=== PATIENT | female | born 1995 | race Asian ===

== ENCOUNTER 2022-11-04 06:14 | Emergency (ER) | payer BC, OTHER ==
[~2022-11-04] VITALS: Ht 165 cm; Wt 81.0 kg
--- NOTE | 2022-11-04 06:43 | ED Abdominal Pain ---
General Stated Complaint: ABD PAIN,NAUSEA Source of Information: Patient Exam Limitations: No Limitations History of Present Illness Date Seen by Provider: November 04, 2022 Time Seen by Provider: 06:43 Initial Comments Patient is a 27-year-old female who presents to the emergency room with a chief complaint of abdominal pain, nausea and vomiting. She states it started at about 3:00 this morning. She describes it as "severe". Nothing makes it any better or any worse. It seems to be localized to the right side of her abdomen. She has not had any diarrhea. She has vomited multiple times, took an [id number] nonprescription "pain reliever" at 430 but vomited it up. She states she is allergic to ibuprofen it makes her mouth lips and whole body swell. She denies fever. No chills. No dysuria, urgency or frequency. No abnormal vaginal discharge. She states her last menstrual cycle was around 16 September. She is not on control. She is sexually active. She is attempting to get . She has had no prior pregnancies. She has had no prior abdominal surgeries. She has had a kidney stone in the past 6 to 7 years ago. She states this pain feels different. Still nauseous and dry heaving. Unable to provide a urine specimen at this time due to her reported dehydration. Timing/Duration: 4-6 Hours Severity/Quality: Severe, Aching Location: RLQ, Flank (right) Radiation: No Radiation Activities at Onset: Sleeping Associated Symptoms: Nausea/Vomiting Allergies and Home Medications Allergies Coded Allergies: ibuprofen (Verified Allergy, Severe, Angioedema, 11/04/22) Patient Home Medication List Home Medication List Reviewed: Yes Review of Systems Review of Systems Constitutional: see HPI EENTM: No Symptoms Reported Respiratory: No Symptoms Reported Cardiovascular: No Symptoms Reported Gastrointestinal: Abdominal Pain, Nausea, Vomiting Genitourinary: No Symptoms Reported Musculoskeletal: no symptoms reported Skin: no symptoms reported Psychiatric/Neurological: Anxiety All Other Systems Reviewed Negative Unless Noted: Yes Physical Exam Vital Signs Vital Signs - First Documented 11/04/22 06:44 Temp 35.8 Pulse 81 Resp 16 B/P (MAP) 119/78 (92) Capillary Refill : Height/Weight/BMI Height: '" Weight: lbs. oz. kg; BMI Method: General Appearance: WD/WN, mild distress HEENT: PERRL/EOMI Neck: normal inspection Respiratory: lungs clear, normal breath sounds, no respiratory distress, no accessory muscle use Cardiovascular: regular rate, rhythm Gastrointestinal: soft, tenderness (mild tenderness in the right flank and mid abdomen; no rebound or involuntary guarding; quiet bowel sounds) Extremities: normal range of motion, non-tender, normal inspection Back: no CVA tenderness Neurologic/Psychiatric: no motor/sensory deficits, alert, oriented x 3 Skin: normal color, warm/dry Progress/Results/Core Measures Results/Orders Lab Results Laboratory Tests Test 11/04/22 06:40 11/04/22 08:37 Range/Units White Blood Count 8.7 4.3-11.0 10^3/uL Red Blood Count 4.48 3.80-5.11 10^6/uL Hemoglobin 12.5 11.5-16.0 g/dL Hematocrit 36 35-52 % Mean Corpuscular Volume 81 80-99 fL Mean Corpuscular Hemoglobin 28 25-34 pg Mean Corpuscular Hemoglobin Concent 34 32-36 g/dL Red Cell Distribution Width 13.6 10.0-14.5 % Platelet Count 261 130-400 10^3/uL Mean Platelet Volume 9.4 9.0-12.2 fL Immature Granulocyte % (Auto) 0 % Neutrophils (%) (Auto) 59 42-75 % Lymphocytes (%) (Auto) 34 12-44 % Monocytes (%) (Auto) 6 0-12 % Eosinophils (%) (Auto) 0 0-10 % Basophils (%) (Auto) 1 0-10 % Neutrophils # (Auto) 5.1 1.8-7.8 10^3/uL Lymphocytes # (Auto) 2.9 1.0-4.0 10^3/uL Monocytes # (Auto) 0.6 0.0-1.0 10^3/uL Eosinophils # (Auto) 0.0 0.0-0.3 10^3/uL Basophils # (Auto) 0.1 0.0-0.1 10^3/uL Immature Granulocyte # (Auto) 0.0 0.0-0.1 10^3/uL Sodium Level 139 135-145 MMOL/L Potassium Level 3.4 L 3.6-5.0 MMOL/L Chloride Level 106 98-107 MMOL/L Carbon Dioxide Level 20 L 21-32 MMOL/L Anion Gap 13 5-14 MMOL/L Blood Urea Nitrogen 11 7-18 MG/DL Creatinine 0.79 0.60-1.30 MG/DL Estimat Glomerular Filtration Rate 104 BUN/Creatinine Ratio 14 Glucose Level 136 H 70-105 MG/DL Calcium Level 8.7 8.5-10.1 MG/DL Urine Color YELLOW Urine Clarity CLEAR Urine pH 6.0 5-9 Urine Specific [place] 1.020 1.016-1.022 Urine Protein NEGATIVE NEGATIVE Urine Glucose (UA) NEGATIVE NEGATIVE Urine Ketones NEGATIVE NEGATIVE Urine Nitrite NEGATIVE NEGATIVE Urine Bilirubin NEGATIVE NEGATIVE Urine Urobilinogen 0.2 < = 1.0 MG/DL Urine Leukocyte Esterase NEGATIVE NEGATIVE Urine RBC (Auto) 3+ H NEGATIVE Urine RBC 50-100 H /HPF Urine WBC NONE /HPF Urine Squamous Epithelial Cells RARE /HPF Urine Crystals NONE /LPF Urine Bacteria NEGATIVE /HPF Urine Casts NONE /LPF Urine Mucus NEGATIVE /LPF Urine Culture Indicated NO My Orders Orders - KRISTINA FRANKLIN MD Ed Iv/Invasive Line Start (11/04/22 06:42) Cbc With Automated Diff (11/04/22 06:42) Basic Metabolic Panel (11/04/22 06:42) Urinalysis (11/04/22 06:42) Urine Bedside (11/04/22 06:42) Fentanyl Inj (Sublimaze Injection) (11/04/22 07:00) Ondansetron Injection (Zofran Injectio (11/04/22 07:00) Ns Iv 1000 Ml (Sodium Chloride 0.9%) (11/04/22 06:47) Ns Iv 1000 Ml (Sodium Chloride 0.9%) (11/04/22 07:54) Ct Abd/Pelvis Wo(Kidney Stone) (11/04/22 09:24) Medications Given in ED Current Medications Medications Dose Ordered Sig/Rogers Route Start Time Stop Time Status Last Admin Dose Admin Fentanyl Citrate 50 mcg ONCE ONCE IVP 11/04/22 07:00 11/04/22 07:01 DC 11/04/22 07:04 50 MCG Ondansetron HCl 8 mg ONCE ONCE IVP 11/04/22 07:00 11/04/22 07:01 DC 11/04/22 07:04 8 MG Vital Signs/I&O 11/04/22 06:44 Temp 35.8 Pulse 81 Resp 16 B/P (MAP) 119/78 (92) Progress Progress Note : Time: 10:09 Progress Note Patient seen and evaluated by me. Evaluation today includes physical exam, CBC, basic metabolic panel, urine test, urinalysis and CT scan renal stone protocol. Patient's exam pertinent for well-developed well-nourished mildly obese female in mild distress due to nausea and abdominal pain. Heart is regular, lungs are clear. Abdomen is soft mildly tender in the right flank without rebound, involuntary guarding. Bowel sounds are present. Moves all extremities well, no neurologic deficits. Vital signs are stable. Differential diagnosis based on history and physical exam, renal stone, pyelonephritis, pelvic inflammatory disease. Labs reviewed by me show normal CBC, normal basic metabolic panel, urine test is negative urinalysis shows red blood cells. CT scan renal stone protocol read by radiology shows a 1 cm x 4 mm stone high in the right ureter adjacent to the right ureteropelvic junction. Mild hydronephrosis is noted. Patient has no findings concerning for pyelonephritis/UTI. No concerning history for pelvic inflammatory disease. Patient was treated with IV fluids, normal saline x2 L, fentanyl 50 mcg and Zofran 8 mg. She had complete relief of right flank pain. She is continue to rest comfortably in the emergency department with no deterioration in clinical condition. I discussed her results with her. She lives in [place] and will be traveling back today. I strongly encouraged her to follow-up with a urologist as the stone is so big and likely she will be unable to pass it. We will send prescriptions for pain medication, nausea medication and Flomax to her pharmacy of choice here in [facility]. Return precautions to emergent care discussed with the patient and provided in both verbal and written form. Patient verbalized understanding of the plan of care all questions are sought and answered. Patient is improved at discharge. Diagnostic Imaging Diagonstic Imaging: CT Comments [facility], [place] NAME: ELIZABETH JACK [facility] REC#: [id number] PT STATUS: REG ER : 1995 PHYSICIAN: KRISTINA FRANKLIN MD ADMIT DATE: 11/04/22/ER Signed Date of Exam:11/04/22 CT ABD/PELVIS WO(KIDNEY STONE) PROCEDURE: CT urinary tract, rule out kidney stone. TECHNIQUE: Multiple contiguous axial images were obtained through the abdomen and pelvis without the use of intravenous contrast. Auto Exposure Controls were utilized during the CT exam to meet ALARA standards for radiation dose reduction. INDICATION: Abdominal pain. COMPARISON: None. FINDINGS: Diffusely hypodense liver. Normal spleen, adrenal glands, pancreas. Normal gallbladder. Obstructing kidney stone in the right ureteral pelvic junction measuring 1.0 x 0.4 cm (image 82 series 2). Moderate associated right hydronephrosis and right perinephric fat stranding. No associated fluid collections seen. No free fluid within the pelvis. The urinary bladder is decompressed. No other kidney stones are identified. The bowel is nondilated. The appendix is normal. The aorta is normal in caliber. No abdominal pelvic lymphadenopathy. The soft tissues are normal. The osseous structures demonstrate no lytic or sclerotic bone lesions. IMPRESSION: Obstructing kidney stone the right ureteropelvic junction measuring 1.0 x 0.4 cm. Moderate associated right hydronephrosis. Dictated by: Dictated on workstation # [id number] Dict: 11/04/22 0953 Trans: 11/04/22 0957 [facility] [place] [id number] Interpreted by: ADOLFO BOYD DO Electronically signed by: ADOLFO BOYD DO 11/04/22 0957 Departure Impression Primary Impression: Kidney stone on right side Disposition: 01 HOME, SELF-CARE Condition: Stable Departure-Patient Inst. Decision time for Depature: 10:16 Referrals: NO,LOCAL PHYSICIAN (PCP/Family) Primary Care Physician Patient Instructions: Kidney Stone, Adult ED Add. Discharge Instructions: You have a kidney stone on the right side close to the kidney that measures 1cm x 4mm Strain your urine when going to the bathroom. I have sent prescriptions for pain medication, hydrocodone as well as Zofran for nausea and Flomax for urine flow to the pharmacy. Take the hydrocodone with 1 extra strength Tylenol every 6 hours as needed for pain. You can take the Zofran/ondansetron 1 tablet every 6-8 hours as needed for nausea and vomiting. You will need to take a stool softener daily while taking Hydrocodone daily. Please take the Flomax 1 pill at night every night. If you develop a fever over 100.4 with worsening pain, nausea vomiting please return to emergent care for reevaluation. When you get home to [place] you will need to find a local Urologist as these doctors take care of patients with kidney stones. You will likely need some sort of procedure in order to help pass the kidney stone. Scripts Tamsulosin HCl (Flomax) 0.4 Mg Cap 0.4 MG PO HS, #30 CAP Prov: KRISTINA FRANKLIN MD 11/04/22 Ondansetron (Ondansetron Odt) 4 Mg Tab.rapdis 4 MG SL Q8H PRN for NAUSEA/VOMITING, #12 TAB Prov: KRISTINA FRANKLIN MD 11/04/22 Hydrocodone/Acetaminophen (Hydrocodone-Acetamin 5-325 mg) 5 Mg-325 Mg Tablet 1 TAB PO Q6H PRN for PAIN-MODERATE (5-7), #15 TAB Prov: KRISTINA FRANKLIN MD 11/04/22 KRISTINA FRANKLIN MD November 04, 2022 06:43
[2022-11-04] MEDS ORDERED: NS IV 1000 ML 1,000 ML IV STA ×2 (06:47→07:54)
[2022-11-04 06:52] LABS: BASOPHILS # (AUTO) 0.1 10^3/uL (0.0-0.1); BASOPHILS % (AUTO) 1 % (0-10); EOSINOPHILS % (AUTO) 0 % (0-10); HEMATOCRIT 36 % (35-52); HEMOGLOBIN 12.5 g/dL (11.5-16.0); LYMPHOCYTES # (AUTO) 2.9 10^3/uL (1.0-4.0); LYMPHOCYTES % (AUTO) 34 % (12-44); MEAN CORPUSCULAR HEMOGLOBIN 28 pg (25-34); MEAN CORPUSCULAR HGB CONC 34 g/dL (32-36); MEAN CORPUSCULAR VOLUME 81 fL (80-99); MEAN PLATELET VOLUME 9.4 fL (9.0-12.2); MONOCYTES # (AUTO) 0.6 10^3/uL (0.0-1.0); MONOCYTES % (AUTO) 6 % (0-12); NEUTROPHILS # (AUTO) 5.1 10^3/uL (1.8-7.8); NEUTROPHILS % (AUTO) 59 % (42-75); PLATELET COUNT 261 10^3/uL (130-400); WHITE BLOOD COUNT 8.7 10^3/uL (4.3-11.0)
[2022-11-04 07:00] LABS: POTASSIUM 3.4 MMOL/L (3.6-5.0)
[2022-11-04] MEDS ORDERED: fentaNYL INJ 100 MCG/2 ML AMP IVP ONE (07:00)
[2022-11-04] MEDS ORDERED: ONDANSETRON 4 MG/2 ML (SDV) Z0FRAN IVP ONE (07:00)
[2022-11-04 07:01] LABS: CALCIUM 8.7 MG/DL (8.5-10.1)
[2022-11-04 07:05] LABS: CREATININE SERUM 0.79 MG/DL (0.60-1.30)
[2022-11-04 08:47] LABS: BILIRUBIN,URINE NEGATIVE (NEGATIVE); CLARITY,URINE CLEAR; COLOR,URINE YELLOW; GLUCOSE, URINE (UA) NEGATIVE (NEGATIVE); KETONES,URINE NEGATIVE (NEGATIVE); LEUKOCYTE ESTERASE ,URINE NEGATIVE (NEGATIVE); NITRITE,URINE NEGATIVE (NEGATIVE); PROTEIN,URINE NEGATIVE (NEGATIVE)
[2022-11-04 09:16] LABS: BACTERIA,URINE NEGATIVE /HPF; RBC,URINE 50-100 /HPF; SQUAMOUS EPITHELIAL CELL,UR RARE /HPF
--- NOTE | 2022-11-04 09:58 | Diagnostic Imaging Report ---
PROCEDURE: CT urinary tract, rule out kidney stone. TECHNIQUE: Multiple contiguous axial images were obtained through the abdomen and pelvis without the use of intravenous contrast. Auto Exposure Controls were utilized during the CT exam to meet ALARA standards for radiation dose reduction. INDICATION: Abdominal pain. COMPARISON: None. FINDINGS: Diffusely hypodense liver. Normal spleen, adrenal glands, pancreas. Normal gallbladder. Obstructing kidney stone in the right ureteral pelvic junction measuring 1.0 x 0.4 cm (image 82 series 2). Moderate associated right hydronephrosis and right perinephric fat stranding. No associated fluid collections seen. No free fluid within the pelvis. The urinary bladder is decompressed. No other kidney stones are identified. The bowel is nondilated. The appendix is normal. The aorta is normal in caliber. No abdominal pelvic lymphadenopathy. The soft tissues are normal. The osseous structures demonstrate no lytic or sclerotic bone lesions. IMPRESSION: Obstructing kidney stone the right ureteropelvic junction measuring 1.0 x 0.4 cm. Moderate associated right hydronephrosis. Dictated by: Dictated on workstation # [id number]
[2022-11-04] MEDS ORDERED: ONDA4TAB11 SL (10:56)
[2022-11-04] MEDS ORDERED: ACHD5005 PO (10:56)
[2022-11-04] MEDS ORDERED: TMSL.4C PO (10:56)
[2022-11-04 11:11] VITALS: BP 106/69
== END 2022-11-04 11:11 | disposition home or self-care (01) ==
LOC: ER 06:20
DX: N13.2 Hydronephrosis with renal and ureteral calculous obstruction (principal); E66.9 Obesity, unspecified; Z87.442 Personal history of urinary calculi; Z68.29 Body mass index [BMI] 29.0-29.9, adult
CPT/HCPCS: 36415; 74176; 80048; 81000; 84703; 85025